=== PATIENT | male | born 1990 | race Native Hawaiian/Other Pacific Islander ===

== ENCOUNTER 2017-10-07 09:54 | Emergency (ER) | payer OTHER ==
[2017-10-07 09:59] VITALS: RESP 18; TEMP 98.2; O2SAT 98
--- NOTE | 2017-10-07 10:54 | ED PDOC ---
HPI: Abdomen Time Seen by Provider: 10/07/17 10:10 Chief Complaint (Nursing): Abdominal Pain Chief Complaint (Provider): Abdominal Pain History Per: Patient History/Exam Limitations: no limitations Onset/Duration Of Symptoms: Days (x 5), Intermittent Episodes Location Of Pain/Discomfort: RLQ Associated Symptoms: denies: Fever, Nausea, Vomiting, Diarrhea Additional Complaint(s): Yakov Green is a 27 years old male, who was sent by urgent care to the ED for evaluation of intermittent episodes of abdominal pain, onset 5 days ago. Patient denies experiencing fever, nausea, vomiting, diarrhea or any genitourinary symptoms. PMD: non provided Past Medical History Reviewed: Historical Data, Nursing Documentation, Vital Signs Vital Signs: Last Vital Signs Temp 98.2 F 10/07/17 09:59 Pulse 76 10/07/17 14:35 Resp 18 10/07/17 14:35 BP 138/66 10/07/17 14:35 Pulse Ox 98 10/09/17 14:53 - Medical History PMH: No Chronic Diseases - Surgical History Surgical History: No Surg Hx - Family History Family History: States: Unknown Family Hx - Social History Current smoker - smoking cessation education provided: No Alcohol: None Drugs: Denies - Home Medications Home Medications: Ambulatory Orders Medication Instructions Recorded Ibuprofen [Motrin] 600 mg PO Q6H PRN #20 tab 10/07/17 - Allergies Allergies/Adverse Reactions: Allergies Allergy/AdvReac Type Severity Reaction Status Date / Time No Known Allergies Allergy Verified 10/07/17 10:07 Review of Systems ROS Statement: Except As Marked, All Systems Reviewed And Found Negative Constitutional: Negative for: Fever, Chills Gastrointestinal: Positive for: Abdominal Pain (right lower quadrant). Negative for: Nausea, Vomiting, Diarrhea Genitourinary Male: Negative for: Dysuria Physical Exam - Reviewed Nursing Documentation Reviewed: Yes Vital Signs Reviewed: Yes - Physical Exam Appears: Positive for: Non-toxic, No Acute Distress Skin: Positive for: Normal Color, Warm, Dry Cardiovascular/Chest: Positive for: Regular Rate, Rhythm. Negative for: Murmur Respiratory: Positive for: Normal Breath Sounds. Negative for: Respiratory Distress Gastrointestinal/Abdominal: Positive for: Bowel Sounds, Soft, Tenderness (right lower quadrant). Negative for: Distended, Guarding, Rebound Back: Positive for: Normal Inspection Extremity: Positive for: Normal ROM Neurologic/Psych: Positive for: Alert, Oriented - Laboratory Results Result Diagrams: 10/07/17 10:51 10/07/17 10:51 - ECG O2 Sat by Pulse Oximetry: 98 (RA) Pulse Ox Interpretation: Normal Medical Decision Making Medical Decision Making: Time: 1035 Initial Impression: Lower abdominal pain, appendicitis. Initial Plan: --CT Abdomen/Pelvis IV Contrast --CMP --Urine dipstick --CBC --PTT --Prothrombin Time --Urinalysis Time: 1238 CT Abd/Pelvis FINDINGS: LOWER THORAX: Unremarkable. LIVER: Unremarkable. No gross lesion or ductal dilatation. GALLBLADDER AND BILE DUCTS: Unremarkable. PANCREAS: Unremarkable. No gross lesion or ductal dilatation. SPLEEN: Unremarkable. ADRENALS: Unremarkable. No mass. KIDNEYS AND URETERS: Unremarkable. No hydronephrosis. No solid mass. VASCULATURE: Unremarkable. No aortic aneurysm. BOWEL: Unremarkable. No obstruction. No gross mural thickening. APPENDIX: Normal appendix. PERITONEUM: Unremarkable. No free fluid. No free air. LYMPH NODES: Unremarkable. No enlarged lymph nodes. BLADDER: Unremarkable. REPRODUCTIVE: Unremarkable. BONES: No acute fracture. OTHER FINDINGS: None. IMPRESSION: Unremarkable contrast enhanced CT of the abdomen and pelvis. Scribe Attestation: Documented by Codi Zuniga, acting as a scribe for Jing Toledo MD Provider Scribe Attestation: All medical record entries made by the Scribe were at my direction and personally dictated by me. I have reviewed the chart and agree that the record accurately reflects my personal performance of the history, physical exam, medical decision making, and the department course for this patient. I have also personally directed, reviewed, and agree with the discharge instructions and disposition. Disposition - Clinical Impression Clinical Impression: Abdominal pain - Disposition Referrals: [facility] [Outside] Disposition: Routine/Home Disposition Time: 13:47 Condition: STABLE Additional Instructions: FOLLOW-UP WITH PMD WITHIN 2 DAYS FOR REEVALUATION. Prescriptions: Ibuprofen [Motrin] 600 mg PO Q6H PRN #20 tab PRN Reason: Pain, Moderate (4-7) Instructions: Acute Abdomen (Belly Pain) Forms: [employer] (Spanish)
[2017-10-07 10:56] LABS: BASO % 0.9 % (0.0-2.0); EOS # 0.1 K/uL (0.0-0.7); EOS % 0.9 % (0.0-4.0); HEMOGLOBIN 14.6 g/dL (12.0-18.0); LYMPH # 1.4 K/uL (1.0-4.3); LYMPH % 24.4 % (20.0-40.0); MEAN CELL VOLUME 94.4 fl (80.0-94.0); MEAN CORPUSCULAR HEMOGLOBIN 31.6 pg (27.0-31.0); MEAN CORPUSCULAR HGB CONC 33.5 g/dL (33.0-37.0); MEAN PLATELET VOLUME 7.7 fl (7.2-11.7); MONO # 0.4 K/uL (0.0-0.8); MONO % 6.5 % (0.0-10.0); NEUT # 3.8 K/uL (1.8-7.0); NEUT % 67.3 % (50.0-75.0); NRBC % 0.1 % (0.0-0.0); RBC 4.63 Mil/uL (4.40-5.90); RED CELL DISTRIBUTION WIDTH 13.2 % (11.5-14.5); WHITE BLOOD COUNT 5.6 K/uL (4.8-10.8)
[2017-10-07 11:04] LABS: PARTIAL THROMBOPLASTIN TIME 34.2 Seconds (25.6-37.1); PROTHROMBIN TIME 11.2 Seconds (9.8-13.1)
[2017-10-07 11:14] LABS: ALB/GLOB RATIO 1.4 (1.0-2.1); ALBUMIN 4.3 g/dL (3.5-5.0); ALT/SGPT 35 U/L (21-72); AST/SGOT 26 U/L (17-59); BLOOD UREA NITROGEN 15 mg/dl (9-20); CALCIUM 9.4 mg/dL (8.4-10.2); GFR AFRICAN-AMERICAN > 60; GFR NON-AFRICAN AMERICAN > 60
[2017-10-07 12:02] LABS: URINE BILIRUBIN NEGATIVE (NEGATIVE); URINE BLOOD NEGATIVE (NEGATIVE); URINE CLARITY CLEAR (Clear); URINE COLOR YELLOW (YELLOW); URINE GLUCOSE (UA) NEG (Normal); URINE LEUKOCYTE ESTERASE NEG Leu/uL (Negative); URINE PROTEIN NEGATIVE (NEGATIVE); URINE UROBILINOGEN 0.2-1.0 mg/dL (0.2-1.0)
[2017-10-07] MEDS ORDERED: Iohexol 300 100 ML IJ ONE (12:14)
[2017-10-07] MEDS ORDERED: Sodium Chloride 0.9% 100 ML ONE (12:14)
--- NOTE | 2017-10-07 12:40 | CT ---
PROCEDURE: CT Abdomen and Pelvis with contrast HISTORY: RLQ pain COMPARISON: None. TECHNIQUE: Contrast dose: 95 mL Omnipaque 300 Radiation dose: Total exam DLP = 408 mGy-cm. This CT exam was performed using one or more of the following dose reduction techniques: Automated exposure control, adjustment of the mA and/or kV according to patient size, and/or use of iterative reconstruction technique. FINDINGS: LOWER THORAX: Unremarkable. LIVER: Unremarkable. No gross lesion or ductal dilatation. GALLBLADDER AND BILE DUCTS: Unremarkable. PANCREAS: Unremarkable. No gross lesion or ductal dilatation. SPLEEN: Unremarkable. ADRENALS: Unremarkable. No mass. KIDNEYS AND URETERS: Unremarkable. No hydronephrosis. No solid mass. VASCULATURE: Unremarkable. No aortic aneurysm. BOWEL: Unremarkable. No obstruction. No gross mural thickening. APPENDIX: Normal appendix. PERITONEUM: Unremarkable. No free fluid. No free air. LYMPH NODES: Unremarkable. No enlarged lymph nodes. BLADDER: Unremarkable. REPRODUCTIVE: Unremarkable. BONES: No acute fracture. OTHER FINDINGS: None. IMPRESSION: Unremarkable contrast enhanced CT of the abdomen and pelvis.
[2017-10-07 14:36] VITALS: BP 138/66; PULSE 76
== END 2017-10-07 13:52 | disposition home or self-care (01) ==
LOC: H.ER 09:54
DX: R10.31 Right lower quadrant pain (principal)
CPT/HCPCS: 74177; 80053; 81003; 85025; 85610; 85730; 99283; Q9967

== ENCOUNTER 2018-02-11 22:33 | Emergency (ER) | payer OTHER ==
[2018-02-11 22:35] VITALS: BMI 23.0
[2018-02-11 22:39] VITALS: TEMP 98.8
[2018-02-11] MEDS ORDERED: Sodium Chloride 0.9% 1,000 ML IV STA (22:58)
[2018-02-11 23:16] LABS: BASO % 0.8 % (0.0-2.0); EOS # 0.1 K/uL (0.0-0.7); EOS % 1.5 % (0.0-4.0); HEMOGLOBIN 13.7 g/dL (12.0-18.0); LYMPH # 2.3 K/uL (1.0-4.3); LYMPH % 38.5 % (20.0-40.0); MEAN CORPUSCULAR HEMOGLOBIN 32.2 pg (27.0-31.0); MEAN PLATELET VOLUME 7.6 fl (7.2-11.7); MONO # 0.5 K/uL (0.0-0.8); MONO % 7.4 % (0.0-10.0); NEUT # 3.1 K/uL (1.8-7.0); NEUT % 51.8 % (50.0-75.0); NRBC % 0.1 % (0.0-0.0); RBC 4.25 Mil/uL (4.40-5.90); RED CELL DISTRIBUTION WIDTH 13.4 % (11.5-14.5)
--- NOTE | 2018-02-11 23:21 | ED PDOC ---
Upper Extremity Pain/Injury Time Seen by Provider: 02/11/18 22:46 Chief Complaint (Nursing): Weakness/Neurological Deficit Chief Complaint (Provider): Weakness/Neurological Deficit History Per: Patient History/Exam Limitations: no limitations Onset/Duration Of Symptoms: Hrs (x2) Current Symptoms Are (Timing): Gone Now Additional Complaint(s): Patient is a 28 y/o male with no significant medical history who presents to the ED complaining of left arm numbness, onset x2 hours prior to arrival. Patient states that when symptoms started he felt a tingling sensation with pins and needles to his left upper extremity. Patient states he didn't feel as though there was any dense numbness or any weakness but states he noticed his left hand was a little paler than his right. Patient also reported feeling lightheaded. Patient reports that when the symptoms resolved he also felt a cramping sensation in his left calf. He denies loss of consciousness, headache, or dizziness. All symptoms are now resolved. PMD: None provided Past Medical History Reviewed: Historical Data, Nursing Documentation, Vital Signs Vital Signs: Last Vital Signs Temp 98.8 F 02/11/18 22:35 Pulse 75 02/11/18 22:35 Resp 18 02/11/18 22:35 BP 132/75 02/11/18 22:35 Pulse Ox 98 02/11/18 22:35 - Medical History PMH: No Chronic Diseases - Surgical History Surgical History: No Surg Hx - Family History Family History: States: Hypertension - Social History Current smoker - smoking cessation education provided: No Alcohol: Occasional Drugs: Cannabis (last use today) - Home Medications Home Medications: Ambulatory Orders Medication Instructions Recorded Ibuprofen [Motrin] 600 mg PO Q6H PRN #20 tab 10/07/17 - Allergies Allergies/Adverse Reactions: Allergies Allergy/AdvReac Type Severity Reaction Status Date / Time No Known Allergies Allergy Verified 02/11/18 22:34 Review of Systems ROS Statement: Except As Marked, All Systems Reviewed And Found Negative (as per HPI otherwise negative) Musculoskeletal: Positive for: Leg Pain (left calf cramping) Neurological: Positive for: Numbness (left upper extremity), Dizziness ( lightheaded). Negative for: Headache, Other (loss of consciousness) Physical Exam - Reviewed Nursing Documentation Reviewed: Yes Vital Signs Reviewed: Yes - Physical Exam Appears: Positive for: Non-toxic, No Acute Distress Head Exam: Positive for: ATRAUMATIC, NORMOCEPHALIC Skin: Positive for: Warm, Dry Eye Exam: Positive for: EOMI, PERRL ENT: Negative for: Pharyngeal Erythema, Tonsillar Exudate Neck: Positive for: Painless ROM, Supple Cardiovascular/Chest: Positive for: Regular Rate, Rhythm. Negative for: Murmur Respiratory: Positive for: Normal Breath Sounds. Negative for: Wheezing Gastrointestinal/Abdominal: Positive for: Soft. Negative for: Tenderness Back: Positive for: Normal Inspection. Negative for: Decreased ROM Extremity: Positive for: Normal ROM. 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 Negative for: Motor/Sensory Deficits, Aphasia, Facial Droop - Laboratory Results Result Diagrams: 02/11/18 23:05 02/11/18 23:05 - ECG O2 Sat by Pulse Oximetry: 98 (RA) Pulse Ox Interpretation: Normal Medical Decision Making Medical Decision Making: Time: 22:57 Impression: Transient unilateral parasthesia Differential diagnosis included but not limited to electrolyte abnormality, neuropathy, marijuana use, anxiety Initial Plan: --EKG --CMP --Magnesium --Phosphorous --CBC w/ diff --IV fluids Labs unremarkable. EKG Incomp RBBB otherwise normal Scribe Attestation: Documented by John Mcnair acting as a scribe for Jocelynn Card MD Provider Scribe Attestation: All medical record entries made by the Scribe were at my direction and personally dictated by me. I have reviewed the chart and agree that the record accurately reflects my personal performance of the history, physical exam, medical decision making, and the department course for this patient. I have also personally directed, reviewed, and agree with the discharge instructions and disposition. Disposition - Clinical Impression Clinical Impression: Arm paresthesia, left Counseled Patient/Family Regarding: Studies Performed, Diagnosis, Need For Followup - Disposition Referrals: [facility] [Outside] (FOLLOW UP WITH YOUR [facility] IN 24 -48 HOURS FOR REEVALUATION) Disposition: Routine/Home Disposition Time: 23:47 Condition: IMPROVED Instructions: Paresthesias (DC) Forms: [email or web address] (Uzbek)
[2018-02-11 23:29] LABS: ALB/GLOB RATIO 1.5 (1.0-2.1); ALBUMIN 4.2 g/dL (3.5-5.0); ALT/SGPT 29 U/L (21-72); AST/SGOT 25 U/L (17-59); BLOOD UREA NITROGEN 23 mg/dl (9-20); CALCIUM 9.1 mg/dL (8.4-10.2); GFR NON-AFRICAN AMERICAN > 60
[2018-02-12 00:04] VITALS: BP 129/77; PULSE 76; RESP 15; O2SAT 100
--- NOTE | 2018-02-12 12:07 | CARD ---
APPROVED REPORT Date of service: 02/11/2018 <Conclusion> Normal sinus rhythm Rightward axis Incomplete right bundle branch block Borderline ECG
== END 2018-02-12 00:04 | disposition home or self-care (01) ==
LOC: H.ER 22:33
DX: R20.0 Anesthesia of skin (principal)
CPT/HCPCS: 80053; 83735; 84100; 85025; 93005; 99283; J7030

== ENCOUNTER 2018-03-11 00:36 | Emergency (ER) | payer OTHER ==
[2018-03-11 00:37] VITALS: BMI 23.0
[2018-03-11 00:43] VITALS: BP 118/79; PULSE 81; RESP 16; TEMP 98.3; O2SAT 98
== END 2018-03-11 01:50 | disposition left against medical advice (07) ==
LOC: H.ER 00:36
DX: Z02.89 Encounter for other administrative examinations (principal)
CPT/HCPCS: 99281; LWBS0

== ENCOUNTER 2018-03-31 22:46 | Emergency (ER) | payer OTHER ==
[2018-03-31 22:46] VITALS: BMI 23.0
[2018-03-31 23:01] VITALS: RESP 18; O2SAT 100
[2018-04-01 01:12] LABS: BASO # 0.1 K/uL (0.0-0.2); BASO % 0.8 % (0.0-2.0); EOS # 0.1 K/uL (0.0-0.7); EOS % 0.9 % (0.0-4.0); HEMOGLOBIN 15.2 g/dL (12.0-18.0); LYMPH % 31.2 % (20.0-40.0); MEAN CELL VOLUME 94.8 fl (80.0-94.0); MEAN CORPUSCULAR HEMOGLOBIN 31.8 pg (27.0-31.0); MEAN CORPUSCULAR HGB CONC 33.6 g/dL (33.0-37.0); MEAN PLATELET VOLUME 7.5 fl (7.2-11.7); MONO # 0.6 K/uL (0.0-0.8); MONO % 8.5 % (0.0-10.0); NEUT # 3.8 K/uL (1.8-7.0); NEUT % 58.6 % (50.0-75.0); RBC 4.78 Mil/uL (4.40-5.90); RED CELL DISTRIBUTION WIDTH 13.7 % (11.5-14.5); WHITE BLOOD COUNT 6.5 K/uL (4.8-10.8)
[2018-04-01 01:22] LABS: BLOOD UREA NITROGEN 22 mg/dl (9-20); CALCIUM 9.9 mg/dL (8.4-10.2); GFR NON-AFRICAN AMERICAN > 60
--- NOTE | 2018-04-01 02:27 | ED PDOC ---
HPI: SOB/CHF/COPD Time Seen by Provider: 03/31/18 23:43 Chief Complaint (Nursing): Shortness Of Breath Chief Complaint (Provider): Shortness Of Breath History Per: Patient History/Exam Limitations: no limitations Onset/Duration Of Symptoms: Hrs (x1) Current Symptoms Are (Timing): Gone Now Additional Complaint(s): 28 year old male with no significant past medical history presents to the ED with one episode of shortness of breath for 30 minutes approximately an hour PT A. He reports the shortness of breath spontaneously resolved. Patient states he felt as if he couldnt take a deep breath. 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 Patient denies a history of heart or lung problems;also denies any history of blood clots. He denies any chest pain, prolonged immobilization, cough, headache, dizziness, nausea, vomiting, abdominal pain, fever, chills and other padron felt normal all day. PMD: none provided Past Medical History Reviewed: Historical Data, Nursing Documentation, Vital Signs Vital Signs: Last Vital Signs Temp 98.2 F 03/31/18 22:58 Pulse 89 03/31/18 22:58 Resp 18 03/31/18 22:58 BP 124/79 03/31/18 22:58 Pulse Ox 100 03/31/18 22:58 - Medical History PMH: No Chronic Diseases - Surgical History Surgical History: No Surg Hx - Family History Family History: States: Unknown Family Hx - Social History Current smoker - smoking cessation education provided: No Ex-Smoker (has not smoked in the last 12 months): No Alcohol: Social Drugs: Denies - Home Medications Home Medications: Ambulatory Orders Medication Instructions Recorded Ibuprofen [Motrin] 600 mg PO Q6H PRN #20 tab 10/07/17 Albuterol Sulfate [Ventolin Hfa] 1 puff INH Q8 PRN #1 unit 04/01/18 - Allergies Allergies/Adverse Reactions: Allergies Allergy/AdvReac Type Severity Reaction Status Date / Time No Known Allergies Allergy Verified 03/31/18 22:58 Review of Systems ROS Statement: Except As Marked, All Systems Reviewed And Found Negative Constitutional: Negative for: Fever, Chills Cardiovascular: Negative for: Chest Pain Respiratory: Positive for: Shortness of Breath. Negative for: Cough Gastrointestinal: Negative for: Nausea, Vomiting, Abdominal Pain, Diarrhea Neurological: Negative for: Headache, Dizziness Physical Exam - Reviewed Nursing Documentation Reviewed: Yes Vital Signs Reviewed: Yes - Physical Exam Comments: GENERAL APPEARANCE: Patient is awake, alert, oriented x 3, in no acute distress. Resting comfortably, on cell phone. SKIN: Warm, dry; (-) cyanosis. EYES: (-) conjunctival pallor. ENMT: Mucous membranes moist. Airway patent, (-) stridor. NECK: Supple, FROM (-) tenderness, (-) stiffness, (-) lymphadenopathy, (-) JVD. CHEST AND RESPIRATORY: (-) chest wall tenderness (-) accessory muscle use (-) retractions. Lungs: (-) rales, (-) rhonchi, (-) wheezes, (-) rub; breath sounds equal bilaterally. Respirations even and nonlabored, speaking in full sentences. HEART AND CARDIOVASCULAR: (-) irregularity ABDOMEN AND GI: Soft; (-) distention, (-) tenderness, (-) guarding, (-) palpable pulsatile mass. EXTREMITIES: (-) deformity; (-) edema, (-) calf tenderness. (+) distal pulses. NEURO AND PSYCH: Mental status as above. Cranial nerves grossly intact; strength symmetric. Speech: clear. Gait: steady. - Laboratory Results Result Diagrams: 04/01/18 01:00 04/01/18 01:00 - ECG ECG Rhythm: Positive for: Normal ST Segment, Right Bundle Branch Block (incomplete) Interpretation Of ECG: QTC 447 Rate: 86 O2 Sat by Pulse Oximetry: 100 (RA) Pulse Ox Interpretation: Normal Medical Decision Making Medical Decision Making: Time: 34 Initial Impression: Shortness of breath (resolved) Initial Plan: --BMP --Troponin --CBC with differentials --D dimer --CXR --Re-evaluation 224 Labs reviewed and unremarkable. Troponin and D-Dimer negative. CXR: no acute disease Patient notified official radiology reading would be available within 24 hours and that he would be notified of any discrepancies via phone. On re-evaluation, patient reports improvement of symptoms, denies any SOB or chest pain. On exam, patient remains AAOx3, in no acute distress. Lungs CTA, cardiac RRR, abdomen soft, nontender, repeat neuro exam shows no focal findings. Vitals stable. Lab/Diagnostic results d/w with the patient in great detail. Diagnosis of shortness of breath d/w patient. Based on history, exam, and diagnostic results, plan will be for outpatient follow up. Patient instructed to follow up with PMD / referral provided / the clinic in 1-2 days without fail. Advised to take medication as prescribed. Return to the emergency room at any time for any new or worsening symptoms. Patient states he agrees with and understandings discharge instructions. States that he agrees with the plan and disposition. Verbalized and repeated discharge instructions and plan. I have given the patient opportunity to ask any additional questions. Scribe Attestation: Documented by Zena James, acting as a scribe for Cielo Ramirez PA-C Provider Scribe Attestation: All medical record entries made by the Scribe were at my direction and personally dictated by me. I have reviewed the chart and agree that the record accurately reflects my personal performance of the history, physical exam, medical decision making, and the department course for this patient. I have also personally directed, reviewed, and agree with the discharge instructions and disposition. Disposition - Clinical Impression Clinical Impression: Shortness of breath - Patient ED Disposition Is Patient to be Admitted: No Counseled Patient/Family Regarding: Studies Performed, Diagnosis, Need For Followup, Rx Given - Disposition Referrals: [facility] [Outside] Gal Knox MD [Staff Provider] - Disposition: Routine/Home Disposition Time: 02:25 Condition: STABLE Additional Instructions: The emergency medical care you received today was directed towards your acute symptoms. If you were prescribed medication, please fill it at the pharmacy and take it as directed. It may take several days for your symptoms to resolve. Return to emergency department if your symptoms worsen, do not improve, or if you have any other problems. Please contact your doctor / referred provider / clinic in 2 days for further evaluation. The treatment in the emergency department cannot replace ongoing medical care by a primary doctor outside of the emergency department. Prescriptions: Albuterol Sulfate [Ventolin Hfa] 1 puff INH Q8 PRN #1 unit PRN Reason: shortness of breath Instructions: Shortness of Breath (Dyspnea) (DC) Forms: [employer] (Burundian) Print Language: IRISH - POA Present On Arrival: None Results - Lab Results Lab Results: 04/01/18 04/01/18 04/01/18 01:00 01:00 01:00 WBC 6.5 RBC 4.78 Hgb 15.2 Hct 45.3 MCV 94.8 H MCH 31.8 H MCHC 33.6 RDW 13.7 Plt Count 268 MPV 7.5 Neut % (Auto) 58.6 Lymph % (Auto) 31.2 [place] % (Auto) 8.5 Eos % (Auto) 0.9 Baso % (Auto) 0.8 Neut # (Auto) 3.8 Lymph # (Auto) 2.0 [place] # (Auto) 0.6 Eos # (Auto) 0.1 Baso # (Auto) 0.1 D-Dimer, Quantitative 216 Sodium 140 Potassium 3.6 Chloride 104 Carbon Dioxide 26 Anion Gap 14 BUN 22 H Creatinine 1.0 Est GFR ( Amer) > 60 Est GFR (Non-Af Amer) > 60 Random Glucose 94 Calcium 9.9 Troponin I < 0.0120
[2018-04-01 02:41] VITALS: PULSE 86
[2018-04-01 05:06] VITALS: BP 136/86; TEMP 98
--- NOTE | 2018-04-01 07:56 | RAD ---
Date of service: 04/01/2018 HISTORY: SOB COMPARISON: No prior. TECHNIQUE: Chest PA and lateral FINDINGS: LUNGS: No active pulmonary disease. PLEURA: No significant pleural effusion identified. No pneumothorax apparent. CARDIOVASCULAR: Normal. OSSEOUS STRUCTURES: No significant abnormalities. VISUALIZED UPPER ABDOMEN: Normal. OTHER FINDINGS: None. IMPRESSION: No active disease.
== END 2018-04-01 02:45 | disposition home or self-care (01) ==
LOC: H.ER 22:46
DX: R06.02 Shortness of breath (principal)

== ENCOUNTER 2018-05-16 20:21 | Emergency (ER) | payer SELFPAY ==
[2018-05-16 20:21] VITALS: BMI 23.0
[2018-05-16 20:37] VITALS: TEMP 97.9; O2SAT 98
[2018-05-16 21:43] LABS: BASO % 0.7 % (0.0-2.0); EOS # 0.1 K/uL (0.0-0.7); EOS % 1.1 % (0.0-4.0); HEMOGLOBIN 13.8 g/dL (12.0-18.0); LYMPH # 2.1 K/uL (1.0-4.3); LYMPH % 32.3 % (20.0-40.0); MEAN CELL VOLUME 94.6 fl (80.0-94.0); MEAN CORPUSCULAR HEMOGLOBIN 31.2 pg (27.0-31.0); MEAN PLATELET VOLUME 7.2 fl (7.2-11.7); MONO # 0.4 K/uL (0.0-0.8); MONO % 6.2 % (0.0-10.0); NEUT # 3.9 K/uL (1.8-7.0); NEUT % 59.7 % (50.0-75.0); NRBC % 0.1 % (0.0-0.0); RBC 4.43 Mil/uL (4.40-5.90); RED CELL DISTRIBUTION WIDTH 13.6 % (11.5-14.5); WHITE BLOOD COUNT 6.6 K/uL (4.8-10.8)
[2018-05-16 21:55] LABS: ALB/GLOB RATIO 1.4 (1.0-2.1); ALBUMIN 4.1 g/dL (3.5-5.0); ALT/SGPT 36 U/L (21-72); AST/SGOT 31 U/L (17-59); BLOOD UREA NITROGEN 20 mg/dl (9-20); CALCIUM 9.1 mg/dL (8.4-10.2); GFR NON-AFRICAN AMERICAN > 60
--- NOTE | 2018-05-16 22:10 | ED PDOC ---
HPI: Chest Pain Time Seen by Provider: 05/16/18 20:58 Chief Complaint (Nursing): Chest Pain Chief Complaint (Provider): Chest Pain History Per: Patient History/Exam Limitations: no limitations Onset/Duration Of Symptoms: Days (x3) Current Symptoms Are (Timing): Still Present Additional Complaint(s): 28 year old [place]ym[place] male presents to ED with a complaint of intermittent chest pain that radiates to his back for the last 3 days. He reports associated nausea but denies vomiting or diaphoresis. Patient states he recently returned from traveling to [place] last month. PCP: none provided Past Medical History Reviewed: Historical Data, Nursing Documentation, Vital Signs Vital Signs: Last Vital Signs Temp 97.9 F 05/16/18 20:33 Pulse 72 05/16/18 20:33 Resp 18 05/16/18 20:33 BP 122/76 05/16/18 20:33 Pulse Ox 98 05/16/18 20:33 - Medical History PMH: No Chronic Diseases - Surgical History Surgical History: No Surg Hx - Family History Family History: States: Unknown Family Hx, Hypertension - Social History Current smoker - smoking cessation education provided: No Alcohol: None Drugs: Cannabis - Home Medications Home Medications: Ambulatory Orders Medication Instructions Recorded Ibuprofen [Motrin] 600 mg PO Q6H PRN #20 tab 10/07/17 Albuterol Sulfate [Ventolin Hfa] 1 puff INH Q8 PRN #1 unit 04/01/18 Naproxen [Naprosyn] 500 mg PO Q12 #14 tab 05/16/18 - Allergies Allergies/Adverse Reactions: Allergies Allergy/AdvReac Type Severity Reaction Status Date / Time No Known Allergies Allergy Verified 05/16/18 20:33 Review of Systems ROS Statement: Except As Marked, All Systems Reviewed And Found Negative Constitutional: Negative for: Sweats Cardiovascular: Positive for: Chest Pain Gastrointestinal: Positive for: Nausea. Negative for: Vomiting Musculoskeletal: Positive for: Back Pain Physical Exam - Reviewed Nursing Documentation Reviewed: Yes Vital Signs Reviewed: Yes - Physical Exam Appears: Positive for: Non-toxic, No Acute Distress Head Exam: Positive for: ATRAUMATIC, NORMAL INSPECTION, NORMOCEPHALIC Skin: Positive for: Normal Color Eye Exam: Positive for: Normal appearance, EOMI, PERRL ENT: Positive for: Normal ENT Inspection Neck: Positive for: Normal, Painless ROM, Supple Cardiovascular/Chest: Positive for: Regular Rate, Rhythm, Chest Non Tender. Negative for: Murmur, Bradycardia, Tachycardia Respiratory: Positive for: Normal Breath Sounds. Negative for: Wheezing, Respiratory Distress Gastrointestinal/Abdominal: Positive for: Normal Exam, Soft. Negative for: Tenderness Back: Positive for: Normal Inspection. 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 Negative for: Motor/Sensory Deficits, Aphasia - Laboratory Results Result Diagrams: 05/16/18 21:32 05/16/18 21:32 - ECG O2 Sat by Pulse Oximetry: 98 (RA) Pulse Ox Interpretation: Normal Medical Decision Making Medical Decision Making: Initial Impression: 28 year old Cym[place] male with chest pain in setting of recent travel Initial Plan: * EKG * Labs with d dimer 2155 --Labs reviewed: elevated ddimer, otherwise, normal. CTA chest additionally ordered. 2354 CTA Chest FINDINGS: PULMONARY ARTERIES No evidence of central or segmental pulmonary embolism is seen. AORTA There is no evidence for aneurysm or dissection of the thoracic aorta. LUNGS The lungs appear clear. PLEURAL SPACES No pneumothorax evident. No pleural effusions. HEART Heart size is within normal limits. No significant pericardial effusion. LYMPH NODES No lymphadenopathy is evident. BONES No focal osseous abnormality or acute fracture. UPPER ABDOMEN Images of the upper abdomen are unremarkable. IMPRESSION: Unremarkable pulmonary embolism protocol CTA of the chest. On reassessment, patient reports improvement of symptoms. Patient is stable for discharge home; instructed to follow up with PMD/clinic in 2-3 days. Diagnosis: Atypical chest pain --------- Scribe Attestation: Documented by Kimberly Sanderson, acting as a scribe for Sahil Mcginnis MD. Provider Scribe Attestation: All medical record entries made by the Scribe were at my direction and personally dictated by me. I have reviewed the chart and agree that the record accurately reflects my personal performance of the history, physical exam, medical decision making, and the department course for this patient. I have also personally directed, reviewed, and agree with the discharge instructions and disposition. Disposition - Clinical Impression Clinical Impression: Atypical chest pain - Disposition Referrals: [facility] [Outside] Disposition: Routine/Home Disposition Time: 23:56 Condition: STABLE Prescriptions: Naproxen [Naprosyn] 500 mg PO Q12 #14 tab Instructions: Chest Pain That Is Not Caused by the Heart (DC) Forms: [employer] (Mongolian)
[2018-05-16] MEDS ORDERED: Sodium Chloride 0.9% 50 ML IV ONE (22:40)
[2018-05-16] MEDS ORDERED: Iodixanol 320 MG/ML 100 ML BOTTLE IV ONE (22:40)
[2018-05-16 23:44] VITALS: BP 117/67; PULSE 70; RESP 17
--- NOTE | 2018-05-17 09:19 | CT ---
Date of service: 05/16/2018 PROCEDURE: CT Chest with contrast (Pulmonary Angiogram) HISTORY: chest pain r/o PE COMPARISON: None available. TECHNIQUE: Axial computed tomography images were obtained of the chest in the pulmonary arterial phase of enhancement. Coronal and sagittal reformatted images were created and reviewed. Intravenous contrast dose: 90 mL Omnipaque 300 Radiation dose: Total exam DLP = 311.52 mGy-cm. This CT exam was performed using one or more of the following dose reduction techniques: Automated exposure control, adjustment of the mA and/or kV according to patient size, and/or use of iterative reconstruction technique. FINDINGS: PULMONARY ARTERIES: Unremarkable. No pulmonary embolism. AORTA: No acute findings. No thoracic aortic aneurysm. No aortic atherosclerotic calcification or mural plaque present. LUNGS: Unremarkable. No nodule, mass or pulmonary consolidation. PLEURAL SPACES: Unremarkable. No effusion or pneumothorax. HEART: Unremarkable. No cardiomegaly. No significant pericardial effusion. LYMPH NODES: No lymphadenopathy. BONES, CHEST WALL: Unremarkable. No fracture or destructive lesion OTHER FINDINGS: Unremarkable. IMPRESSION: Unremarkable CT pulmonary angiogram. No pulmonary embolus. Concordant results (preliminary interpretation) provided by [facility].
--- NOTE | 2018-05-17 10:52 | CARD ---
APPROVED REPORT Date of service: 05/16/2018 EKG Measurement Heart [id number] <Conclusion> Normal sinus rhythm with sinus arrhythmia Right axis deviation Pulmonary disease pattern Incomplete right bundle branch block Abnormal ECG
== END 2018-05-17 00:29 | disposition home or self-care (01) ==
LOC: H.ER 20:21
DX: R07.89 Other chest pain (principal)
CPT/HCPCS: 71275; 80053; 84484; 85025; 85378; 93005; 99283; Q9967